=== PATIENT | female | born 1970 | race Caucasian/White ===

== ENCOUNTER → 2024-10-31 10:07 | Outpatient (REF) | payer BC, SELFPAY | LOC: WDC 10:07 | PROVIDERS: ATTENDING PHYSICIAN Obstetrics & Gynecology; FAMILY PHYSICIAN Family Medicine | DX: N63.21 Unspecified lump in the left breast, upper outer quadrant (principal) | CPT/HCPCS: 76642; 77062; 77066 ==

== ENCOUNTER → 2025-02-12 20:35 | Outpatient (REF) | payer BC, SELFPAY | LOC: MRI 3T 20:35 | PROVIDERS: ATTENDING PHYSICIAN Physician Assistant Surgical; FAMILY PHYSICIAN Internal Medicine | DX: M54.16 Radiculopathy, lumbar region (principal) | CPT/HCPCS: 72148 ==